=== PATIENT | male | born 1945 | race Two or more races ===

== ENCOUNTER 2018-09-02 07:13 | Outpatient (CLI) | payer OTHER ==
[2018-09-07] MEDS ORDERED: SIMVASTATIN (10:49)
== END 2018-09-02 07:25 | disposition home or self-care (01) ==
LOC: LAB 07:13
DX: K40.90 Unilateral inguinal hernia, without obstruction or gangrene, not specified as recurrent (principal); Z01.811 Encounter for preprocedural respiratory examination; Z01.812 Encounter for preprocedural laboratory examination; Z01.810 Encounter for preprocedural cardiovascular examination

== ENCOUNTER 2018-09-16 05:55 | Day surgery (SDC) | payer OTHER ==
[~2018-09-16 05:55] MED LIST: SIMVASTATIN
== END 2018-09-16 14:50 | disposition home or self-care (01) ==
LOC: CIR.AMB 05:55
DX: K40.90 Unilateral inguinal hernia, without obstruction or gangrene, not specified as recurrent (principal)